=== PATIENT | male | born 1990 | race African-American/Black ===

== ENCOUNTER 2022-12-16 19:57 | Emergency (ER) | payer OTHER ==
[~2022-12-16] VITALS: Ht 182.9 cm; Wt 105.8 kg
[2022-12-16 20:50] VITALS: TEMP 98.6; O2SAT 100
[2022-12-16 22:15] VITALS: BP 153/82; PULSE 104; RESP 18
[2022-12-16] MEDS ORDERED: KETOROLAC 30MG/ML VIAL IM ONE (22:15)
[2022-12-16] MEDS ORDERED: PREDNISONE 10MG TABLET PO ONE (22:30)
[2022-12-19] MEDS ORDERED: FOLI-43 MT (10:40)
[2022-12-19] MEDS ORDERED: DICL50TA9 PO (10:40)
[2022-12-19] MEDS ORDERED: METH2.5T MT (10:40)
[2022-12-19] MEDS ORDERED: PRED10TA MT (10:40)
[2022-12-19] MEDS ORDERED: HYDR200T80 MT (10:40)
== END 2022-12-16 23:10 | disposition home or self-care (01) ==
LOC: ER 19:57
DX: M25.561 Pain in right knee (principal); M25.562 Pain in left knee
CPT/HCPCS: 99283; 96372; J7512; J1885

== ENCOUNTER 2025-01-28 12:17 | Emergency (ER) | payer MEDICAID, OTHER ==
[~2025-01-28] VITALS: Ht 172.7 cm; Wt 105.0 kg
[~2025-01-28 12:17] MED LIST: DICL50TA9 PO; FOLI-43 MT; HYDR200T80 MT; METH2.5T MT; PRED10TA MT
[2025-01-28 12:26] VITALS: O2SAT 99
[2025-01-28] MEDS ORDERED: ACETAMINOPHEN 160MG/5ML UDC PO ONE (13:30)
[2025-01-28] MEDS ORDERED: CLIN-194 MT (13:36)
[2025-01-28] MEDS ORDERED: PRED5TAB48 MT (13:36)
[2025-01-28] MEDS: DEXAMETHASONE 10 MG/ML VIAL IV ONE (13:45)
[2025-01-28] MEDS: ACETAMINOPHEN 500MG TABLET PO SCH (13:49)
[2025-01-28 13:51] VITALS: BP 140/85; PULSE 80; RESP 15; TEMP 37.2; O2SAT 99
== END 2025-01-28 13:52 | disposition home or self-care (01) ==
LOC: ER 12:17
DX: J03.90 Acute tonsillitis, unspecified (principal); Z79.52 Long term (current) use of systemic steroids
CPT/HCPCS: 99283; 96374; J1100